=== PATIENT | female | born 1995 | race Caucasian/White ===

== ENCOUNTER 2024-12-25 18:21 | Emergency (ER) | payer BC, SELFPAY ==
--- NOTE | 2024-12-25 | ECG_ITS ---
Test Reason : SYNCOPE Blood Pressure : */* mmHG Vent. Rate : 87 BPM Atrial Rate : 87 BPM P-R Int : 154 ms QRS Dur : 86 ms QT Int : 372 ms P-R-T Axes : 46 49 26 degrees QTcB Int : 447 ms Normal sinus rhythm Low voltage QRS Borderline ECG No previous ECGs available Referred By: Generic ED Physician Electronically Signed By: KWADWO RITTER
[2024-12-25 18:34] VITALS: BP 115/78; BP 70/47; PULSE 110; PULSE 91; PULSE 93; RESP 11; RESP 18; TEMP 36.5; O2SAT 92; O2SAT 98; O2SAT 99; BMI 28.4
[2024-12-25 18:51] VITALS: O2SAT 98
[2024-12-25 18:53] LABS: Hematocrit 35.2 % (37.0-47.0); Hemoglobin 12.2 g/dl (12.0-16.0); Imm Gran Abs Auto 0.01 X10*3/uL (0.00-0.03); Imm Gran Pct Auto 0.1 % (0.0-0.4); Lymphocytes Absolute Auto 2.7 X10*3/uL (1.2-4.9); MANUAL DIFF FLAG NO; Mean Corpuscular HGB Conc 34.7 g/dl (31.0-35.0); Mean Corpuscular Hemoglobin 30.5 pg (27.0-33.0); Mean Corpuscular Volume 88.0 fL (80.0-98.0); NRBC Abs Auto 0.000 X10*3/uL (0.0-0.012); NRBC Pct Auto 0.0 /100WBC (0.0-0.2); Platelet Count 192 X10*3/uL (160-400); Red Blood Count 4.00 X10*6/uL (4.20-5.50); White Blood Count 8.9 X10*3/uL (4.8-10.8)
[2024-12-25 19:08] LABS: Alanine Aminotransferase 9 U/L (0-31); Albumin Level 3.7 g/dL (3.5-5.0); Alkaline Phosphatase 41 U/L (39-117); Anion Gap 14 (12-20); Aspartate Amino Transferase 19 U/L (5-31); Blood Urea Nitrogen 14 mg/dL (9-16); Calcium 8.2 mg/dL (8.4-10.2); Carbon Dioxide 22 mmol/L (22-29); Chloride 110 mmol/L (96-108); Creatinine Clr Calc Pharmacy 104.6; Estimated Glomerular Filt Rate > 60; Magnesium 2.0 mg/dL (1.6-2.6); Potassium 3.6 mmol/L (3.3-5.1); Sodium 142 mmol/L (135-145); Total Protein 6.0 g/dL (6.5-8.0)
[2024-12-25 19:16] LABS: Troponin-I High Sensitivity < 2.7 ng/L (<3.5-17.0)
--- NOTE | 2024-12-25 19:42 | ED_ITS ---
HPI - Syncope General Chief Complaint: Syncope Stated Complaint: Syncopal episode Time Seen by Provider: 12/25/24 19:00 Source: patient and other (Friends at bedside who witnessed syncope corroborating history) Mode of arrival: EMS Limitations: no limitations History of Present Illness ED Provider: Mehreen Higuera PA-C HPI narrative: 29-year-old female with medical history of anxiety and depression presents to the ED by EMS due to syncopal episode prior to arrival. Patient states that she had been moving heavy luggage in the sun today, and went to the beach, patient states she only drank 1 bottle of water today did not eat much. [place] the mall and line she felt a sudden sensation of light-headedness, without dizziness, and ?passed out?. Friend who accompanied patient states that he was there with the patient when she passed out and was able to catch her and lower her to the ground. Patient and friend report there was no head strike, in no confusion after coming to, no jerking movements. Patient states when she came to she felt some mild tingling in bilateral fingers and had a cold sweat with mild nausea, no vomiting which resolved minutes after syncopal episode.. Patient states she has had prior syncopal episodes after smoking cigarettes, this episode felt similar. Patient denies chest pain, shortness of breath, headaches, visual changes, vomiting, diarrhea Related Data Allergies Allergy/AdvReac Type Severity Reaction Status Date / Time Sulfa (Sulfonamide Allergy Rash Verified 12/25/24 18:39 Antibiotics) Review of Systems 2 Review of Systems: CONST: Negative for fever, body aches and chills. HENT: Negative for neck pain/stiffness, headache, congestion, sore throat, swelling. EYES: Negative for discharge/pain or vision changes. RESP: Negative for cough/hemoptysis and shortness of breath. CV: Negative chest pain, difficulty breathing, palpitations. ABD: Negative pain, nausea, vomiting. : Negative increase frequency, dysuria, blood in urine or stool. MUSC: Negative for muscle aches, edema. SKIN: Negative rash, lesions/sores. NEURO: Negative headache, dizziness, weakness. Yes all other systems are reviewed and are negative PMFSH Past Medical History Attestation statement: The following information was validated with the patient. Source: old records reviewed and nursing notes reviewed Social History Social History Smoked in Last 30 Days: No Use of substances other than those prescribed or required for medical reasons: No Do you have a plan to hurt others: No Plan Patient : No Physical Exam 2 Vital Signs: Vital Signs: Last Vital Signs Temp 97.5 F 12/25/24 19:43 Pulse 94 12/25/24 19:43 Resp 16 12/25/24 19:43 BP 111/74 12/25/24 19:43 Pulse Ox 100 12/25/24 19:43 O2 Del Method Room Air 12/25/24 19:43 BMI result Body Mass Index 28.4 GENERAL APPEARANCE: ?AxOx4, generally well-appearing, no acute distress. HEENT: ?NC, AT. MMM. EOMI, clear conjunctiva, oropharynx clear. NECK: ?Supple without lymphadenopathy.? No stiffness or restricted ROM. HEART:? Normal rate and regular rhythm, normal S1/S2, no m/r/g, I had patient do vagal maneuver, and while squatting no murmurs heard. LUNGS:? CTAB, moving air well. No crackles or wheezes are heard. ABDOMEN: ?Soft, nontender, nondistended with good bowel sounds heard. EXTREMITIES: ?Without cyanosis, clubbing or edema. NEUROLOGICAL: ?Grossly nonfocal. Alert and oriented, moving all 4 extremities. Observed to ambulate with normal gait. Skin: ?Warm and dry without any rash. Medications Administered Discontinued Medications Generic Name Dose Route Start Last Admin Trade Name Freq PRN Reason Stop Dose Admin Sodium Chloride 1,000 mls @ 999 mls/hr 12/25/24 18:45 12/25/24 18:47 Ns IV 12/25/24 19:45 999 mls/hr .Q1H1M [facility] Administration Medical Decision Making Medical Decision Making MDM Narrative: 29-year-old female with medical history of anxiety and depression presents to the ED by EMS due to syncopal episode prior to arrival. Patient states that she had been moving heavy luggage in the sun today, and went to the beach, patient states she only drank 1 bottle of water today did not eat much. While standing at the mall and line she felt a sudden sensation of light-headedness, without dizziness, and ?passed out?. Friend who accompanied patient states that he was there with the patient when she passed out and was able to catch her and lower her to the ground. Patient and friend report there was no head strike, in no confusion after coming to, no jerking movements. Patient states when she came to she felt some mild tingling in bilateral fingers and had a cold sweat with mild nausea, no vomiting which resolved minutes after syncopal episode.. Patient states she has had prior syncopal episodes after smoking cigarettes, this episode felt similar. VSS-patient normotensive, pulse rate 91 beats per minute, 16 breaths per minute, afebrile, O2 saturation 98% on room air. Benign physical exam, lungs clear to auscultation bilaterally, cardiac exam with normal rate and rhythm no murmurs/rubs/gallops additionally I evaluated the patient while doing vagal maneuver, and while squatting to evaluate for systolic murmur without identifiable murmur, patient does not have history of young family member dying without cause- less likely HCM EKG shows low-voltage QRS, QT: 372 MS, QTC: 447ms- not greater than 500- less likely long QT syndrome, no evidence of arrhythmia- less likely arrhythmia Labs unremarkable, HCG negative- less likely electrolyte abnormality/ectopic Patient given 1L IV fluids, peanut butter and jelly sandwich, joe brandi in the department. Patient states she is feeling much better at this time. I believe patient's syncope is due to vasovagal reaction, due to patient being out in the heat today, at the beach, not eating or drinking much, with tingling fingers, and diaphoresis after episode. Patient did not have any head strike, no postictal phase, no jerking movements during episode- less likely seizure. Patient has primary care provider, counseled patient to follow up with her primary care, and strict return precautions. Differential Diagnosis Differential Diagnoses: The differential diagnosis associated with the presentation includes Seizure Arrhythmia Long QT syndrome Electrolyte abnormality Ectopic HCM Hypoglycemia Vasovagal syncope Admission/Observation Consideration of admission/observation: Escalation of care including admission/observation considered Lab Data [facility] Lab Attestation statement: I reviewed the patient's lab results. 12/25/24 18:44 12/25/24 18:44 Labs: Lab Results 12/25/24 Range/Units 18:44 WBC 8.9 (4.8-10.8) X10*3/uL RBC 4.00 L (4.20-5.50) X10*6/uL Hgb 12.2 (12.0-16.0) g/dl Hct 35.2 L (37.0-47.0) % MCV 88.0 (80.0-98.0) fL MCH 30.5 (27.0-33.0) pg MCHC 34.7 (31.0-35.0) g/dl RDW 12.7 (11.0-16.0) % Plt Count 192 (160-400) X10*3/uL MPV 10.1 (9.4-12.3) fL Immature Gran % (Auto) 0.1 (0.0-0.4) % Neut % (Auto) 61.7 (45-73) % Lymph % (Auto) 30.2 (20-40) % [place] % (Auto) 6.3 (2-11) % Eos % (Auto) 1.0 (0-4) % Baso % (Auto) 0.7 (0-2) % Lymph # (Auto) 2.7 (1.2-4.9) X10*3/uL [place] # (Auto) 0.6 (0.1-1.2) X10*3/uL Eos # (Auto) 0.1 (0.0-0.4) X10*3/uL Baso # (Auto) 0.1 (0.0-0.2) X10*3/uL Abs Immat Gran (auto) 0.01 (0.00-0.03) X10*3/uL Absolute Neuts (auto) 5.5 (2.0-8.3) x10*3/uL Absolute Nucleated RBC 0.000 (0.0-0.012) X10*3/uL Nucleated RBC % (auto) 0.0 (0.0-0.2) /100WBC Sodium 142 (135-145) mmol/L Potassium 3.6 (3.3-5.1) mmol/L Chloride 110 H (96-108) mmol/L Carbon Dioxide 22 (22-29) mmol/L Anion Gap 14 (12-20) BUN 14 (9-16) mg/dL Creatinine 0.83 (0.5-1.4) mg/dL Estim Creat Clear Calc 104.6 Estimated GFR > 60 Random Glucose 101 (60-115) mg/dL Calcium 8.2 L (8.4-10.2) mg/dL Magnesium 2.0 (1.6-2.6) mg/dL Total Bilirubin 0.4 (0.0-1.0) mg/dL AST 19 (5-31) U/L ALT 9 (0-31) U/L Alkaline Phosphatase 41 (39-117) U/L Troponin I High Sens < 2.7 (<3.5-17.0) ng/L Total Protein 6.0 L (6.5-8.0) g/dL Albumin 3.7 (3.5-5.0) g/dL Beta HCG, Quant < 2 mIU/mL Independent Interpretation I performed an independent interpretation of an: EKG Interpretation: I independently interpreted the EKG: Normal sinus rhythm without ST elevation/depression Vent. Rate : 87 BPM Atrial Rate : 87 BPM P-R Int : 154 ms QRS Dur : 86 ms QT Int : 372 ms P-R-T Axes : 46 49 26 degrees QTcB Int : 447 ms Normal sinus rhythm Low voltage QRS Independent Historian Clinical information obtained from an independent historian. History obtained from or confirmed by: Friend (Friend at bedside corroborating history) External Record Review External record reviewed: Inpatient record, Office record and Outpatient record Discharge Plan Discharge Clinical Impression: Vasovagal syncope Patient Disposition: Home, Self-Care Instructions: Syncope (ED), Syncope (DC) Additional Instructions: You were evaluated in the ED today after having [place]opal episode at the mall. Your lab work was reassuring. Your EKG did not show any emergent process. Your physical exam was reassuring, no murmurs heard. You were given 1 L of IV fluids while in the department, peanut butter and jelly sandwich and joe brandi. You stated you are feeling much better at this time. I believe your syncopal episode was due to a vasovagal response, this can happen due to being dehydrated, stress under the sun, or emotional stress. Please follow up with your PCP to ensure improvement Please return to the emergency department if you experience fevers over 100.4?, additional episodes of passing out, headaches visual changes, vomiting, confusion, or any new/worsening/concerning symptoms
[2024-12-25 19:43] VITALS: BP 111/74; PULSE 94; RESP 16; TEMP 36.4; O2SAT 100
[2024-12-25 21:13] VITALS: BP 108/74; PULSE 79; RESP 16; TEMP 36.8; O2SAT 99
[2024-12-25 21:15] VITALS: BP 108/74; PULSE 79; RESP 16; TEMP 36.8; O2SAT 99
== END 2024-12-25 21:15 | disposition home or self-care (01) ==
PROVIDERS: Emergency Provider Emergency Medicine
DX: R55 Syncope and collapse (principal)
CPT/HCPCS: 36415; 80053; 83735; 84484; 84702; 85025; 93005; 96360; 99284; 99285

== ENCOUNTER → 2024-12-25 18:44 | Outpatient (BNV) | payer BC, SELFPAY | PROVIDERS: Emergency Provider Emergency Medicine; Visit Provider Internal Medicine | DX: R55 Syncope and collapse (principal) | CPT/HCPCS: 93010 ==